=== PATIENT | female | born 1995 | race Caucasian/White ===

== ENCOUNTER 2022-07-29 19:09 | Emergency (ER) | payer OTHER, SELFPAY ==
[2022-07-29 19:21] VITALS: BP 150/82; PULSE 108; RESP 16; TEMP 37.5; O2SAT 97; BMI 51.6
[2022-07-29 19:41] VITALS: BP 145/80; PULSE 99; RESP 16; TEMP 37.5; O2SAT 97; BMI 51.6
[2022-07-29 20:10] LABS: UTC Strep Screen (Rapid) Negative (Negative)
--- NOTE | 2022-07-29 20:16 | EXP.UTC ---
Discharge Plan Disposition Patient Disposition: Home, Self-Care Condition: Good Prescriptions Prescriptions: New amoxicillin 875 mg tablet 875 mg PO BID 10 Days Qty: 20 0RF fluticasone propionate [Flonase Allergy Relief] 50 mcg/actuation spray,suspension 1 spray intranasal Q12H Qty: 16 0RF Rx Instructions: administer into each nostril Referrals Follow up/Referrals: Conor Santamaria [Primary Care Provider] - See instructions Clinical Impressions Clinical Impression: Otitis media in diseases classified elsewhere, left ear Instructions Patient Instructions: Middle Ear Infection Discharge ED Provider: Patsy Cox [facility] [place] General Stated complaint: MAHAJAN,earache,eyes hurt Mode of Arrival: Wheelchair Source of Information: Patient Limitations: No Limitations Time Seen by Provider: 07/29/22 20:16 Description of Symptoms (Recalled from Triage Doc. by RN): pt comes in with c/o headache, ear pain, eye pain, nausea. symptoms began 07/26. pt states symptoms got better and sunday. but symptoms got worse today HEENT Symptoms (Recalled from RN notes): Yes Resp Symptoms (Recalled from RN notes): Yes Skin Symptoms (Recalled from RN notes): No MS Symptoms (Recalled from RN notes): No Functional Status (Recalled from RN notes): n/a History of Present Illness Provider Complaint: Pt complains of a frontal headache, eye pain, bilateral ear pain, fever, and nausea. Pt states that she has taken Motrin for her symptoms. She states that her ears hurt even when she hiccups. Related Data Previous Rx's Medication Instructions Recorded amoxicillin 875 mg tablet 875 mg PO BID 10 days #20 tabs 07/29/22 fluticasone propionate 50 1 spray intranasal Q12H #16 grams 07/29/22 mcg/actuation nasal spray,suspension (Flonase Allergy Relief) Allergies Allergy/AdvReac Type Severity Reaction Status Date / Time No Known Allergies Allergy Verified 07/29/22 19:47 Worker's Comp Is this a Worker's Comp case?: No PFSH PFSH Social History Smoking Status: Never smoker alcohol intake: never current occupational status: unemployed Travel in the last 8 weeks: None ROS Obtained: Yes All systems reviewed & no additional complaints except as documented Constitutional Constitutional: Reports as per HPI, Reports fever(s), Reports headache(s) and Reports malaise Eyes Eyes: Reports sensitivity to light ENT Ears, Nose, Mouth, and Throat: Reports headache(s), Reports odynophagia and Reports sore throat Cardiovascular Cardiovascular: Reports system reviewed and no additional complaints, except as documented Respiratory Respiratory: Reports system reviewed and no additional complaints, except as documented Gastrointestinal Gastrointestingal: Reports as per HPI and odynophagia Genitourinary Female Genitourinary: Reports system reviewed and no additional complaints, except as documented Musculoskeletal Musculoskeletal: Reports system reviewed and no additional complaints, except as documented Integumentary/Breasts Skin/Breast: Reports system reviewed and no additional complaints, except as documented Neurologic Neurologic: Reports system reviewed and no additional complaints, except as documented and Reports headache(s) Endocrine Endocrine: Reports system reviewed and no additional complaints, except as documented Hematologic/Lymphatic Henatologic/Lymphatic: Reports system reviewed and no additional complaints, except as documented Physical Exam General General appearance: alert and in no apparent distress Head Head exam: atraumatic and normocephalic Eye Eye exam: Present normal appearance ENT ENT exam: Present mucous membranes moist and other Expanded ENT Exam External ear exam: Present normal external inspection TM/Canal exam: Left TM: erythema and Bilateral TM: bulging and effusion Mouth exam: Present normal external inspection Teeth exam: Present normal inspection Comment: posterior pharynx red Neck Nec
[2022-07-29 20:29] VITALS: BP 145/80; PULSE 99; RESP 16; TEMP 37.5
== END 2022-07-29 20:30 | disposition home or self-care (01) ==
PROVIDERS: Emergency Provider Nurse Practitioner Family; PCP Internal Medicine
DX: H66.92 Otitis media, unspecified, left ear (principal); H92.01 Otalgia, right ear; H57.10 Ocular pain, unspecified eye; R11.0 Nausea; R50.9 Fever, unspecified; R53.81 Other malaise; R51.9 Headache, unspecified; Z20.822 Contact with and (suspected) exposure to COVID-19; Z79.51 Long term (current) use of inhaled steroids; Z79.899 Other long term (current) drug therapy
CPT/HCPCS: 87880; 99213; C9803; G0463; U0003; U0005

== ENCOUNTER 2023-02-22 16:44 | Emergency (ER) | payer OTHER, SELFPAY ==
[2023-02-22 16:45] VITALS: BP 127/73; PULSE 82; RESP 20; TEMP 36.9; O2SAT 99; BMI 51.2
--- NOTE | 2023-02-22 16:58 | EXP.UTC ---
Discharge Plan Disposition Patient Disposition: Home, Self-Care Condition: Good Prescriptions Prescriptions: New ibuprofen [IBU] 800 mg tablet 800 mg PO Q8HP PRN (Reason: Moderate Pain) Qty: 30 0RF No Action metformin 500 mg tablet extended release 24 hr 2,000 mg PO DAILY Label Comments: TAKE 4 TABLETS BY MOUTH WITH EVENING MEAL FOR DIABETES Referrals Follow up/Referrals: Conor Santamaria [Primary Care Provider] - See instructions Randee Etienne DPM [Staff Physician] - See instructions Activity Restrictions/Add. Instructions Additional Instructions/Restrictions: Rest the extremity, Elevate the extremity as tolerated while you are resting. Use the walking boot for ambulation until you are told different by orthopedics. Take ibuprofen for pain. I sent in a prescription to your pharmacy. Follow up with Dr. Etienne (podiatry). I put in a referral but you need to call her office and schedule an appointment. Follow up with your regular doctor. GO TO THE ER FOR ANY WORSENING SYMPTOMS Clinical Impressions Clinical Impression: Crush injury of right foot Stand Alone Forms Stand Alone Forms: Work/School Release Instructions Patient Instructions: DI for Crush Injury, How to Use a Walking Boot Discharge ED Provider: Evelio Thrasher [facility] [place] General Stated complaint: WC4/06 RT foot injury Time Seen by Provider: 02/22/23 16:57 History of Present Illness Provider Complaint: 1 week ago, she dropped a heavy tire on her right foot at her work. Since then she has had right foot pain and swelling. She denies other injury. She states that walking on the foot and bearing weight on it makes her pain worse. Related Data Home Medications Medication Instructions Recorded Confirmed metformin 500 mg tablet,extended 2,000 mg PO DAILY Diabetes 02/22/23 02/22/23 release 24 hr Previous Rx's Medication Instructions Recorded ibuprofen 800 mg tablet (IBU) 800 mg PO Q8HP PRN Moderate Pain 02/22/23 #30 tabs Allergies Allergy/AdvReac Type Severity Reaction Status Date / Time No Known Allergies Allergy Verified 02/22/23 17:06 [facility] Disclaimer: The information contained in this section may have been updated after the patient was seen, as this information can be updated by other users. Social History Smoking Status: Never smoker alcohol intake: never current occupational status: unemployed Travel in the last 8 weeks: None ROS Obtained: Yes All systems reviewed & no additional complaints except as documented Constitutional Constitutional: Denies chills and Denies fever(s) Eyes Eyes: Denies eye discharge ENT Ears, Nose, Mouth, and Throat: Denies dizziness, Denies otalgia and Denies sore throat Cardiovascular Cardiovascular: Denies chest pain Respiratory Respiratory: Denies shortness of breath, Denies chest congestion, Denies cough, Denies stridor and Denies wheezing Gastrointestinal Gastrointestingal: Denies nausea or vomiting Musculoskeletal Musculoskeletal: Reports as per HPI Integumentary/Breasts Skin/Breast: Denies rash Neurologic Neurologic: Denies dizziness and Denies paresthesias Allergic/Immunologic Allergic/Immunologic: Denies wheezing Physical Exam General General appearance: alert and in no apparent distress Head Head exam: atraumatic, normocephalic and normal inspection Eye Eye exam: Present normal appearance, PERRL and EOMI ENT ENT exam: Present normal exam, normal oropharynx, mucous membranes moist, TM's normal bilaterally and normal external ear exam Neck Neck exam: Present normal inspection, full ROM and trachea midline; Absent meningismus or lymphadenopathy Chest Chest inspection: Present normal inspection and symmetric chest wall rise; Absent tenderness Respiratory Respiratory exam: Present normal lung sounds bilaterally; Absent respiratory distress Cardiovascular Cardiovascular exam: Present reg
--- NOTE | 2023-02-22 16:59 | XR_ITS ---
PROCEDURE INFORMATION: Exam: XR Right Foot Exam date and time: 02/22/2023 5:21 PM Age: 27 years old Clinical indication: Injury or trauma; Other: Dropped tire on foot; Additional info: Pain/bruising in top of right foot, dropped tire on foot last week TECHNIQUE: Imaging protocol: Radiologic exam of the right foot. Views: 3 or more views. COMPARISON: No relevant prior studies available. FINDINGS: Bones/joints: Intermediate sized enthesophytes involving the calcaneus. Soft tissues: Moderate soft tissue swelling of the forefoot. IMPRESSION: Moderate soft tissue swelling of the forefoot. No acute osseous abnormality.
--- NOTE | 2023-02-22 16:59 | XR_ITS ---
PROCEDURE INFORMATION: Exam: XR Right Ankle Exam date and time: 02/22/2023 5:23 PM Age: 27 years old Clinical indication: Injury or trauma; Other: Dropped tire on foot; Additional info: Pain/bruising in top of right foot, dropped tire on foot last week TECHNIQUE: Imaging protocol: Radiologic exam of the right ankle. Views: 3 or more views. COMPARISON: CR XR FOOT RT MIN 3V 02/22/2023 5:21 PM FINDINGS: Bones/joints: Smooth ovoid well corticated osseous bodies at the tip of the fibula measuring 12 mm in diameter and 5 mm in diameter favor accessory ossicles versus sequela of prior injury. Soft tissues: Moderate soft tissue swelling of the ankle. IMPRESSION: 1. Smooth ovoid well corticated osseous bodies at the tip of the fibula measuring 12 mm in diameter and 5 mm in diameter favor accessory ossicles versus sequela of prior injury. 2. Moderate soft tissue swelling of the ankle.
[2023-02-22 18:46] VITALS: BP 127/73; PULSE 82; RESP 20; TEMP 36.9; O2SAT 99
== END 2023-02-22 18:46 | disposition home or self-care (01) ==
PROVIDERS: Emergency Provider Nurse Practitioner Family; PCP Internal Medicine
DX: S97.81XA Crushing injury of right foot, initial encounter (principal); W20.8XXA Other cause of strike by thrown, projected or falling object, initial encounter; Y99.0 Civilian activity done for income or pay
CPT/HCPCS: 29515; 73610; 73630; 99212; 99214; G0463

== ENCOUNTER 2023-11-26 16:59 | Emergency (ER) | payer BC, SELFPAY ==
[2023-11-26 17:10] VITALS: BP 135/86; PULSE 82; RESP 22; TEMP 36.7; O2SAT 97; BMI 54.1
--- NOTE | 2023-11-26 17:20 | XR_ITS ---
PROCEDURE INFORMATION: Exam: XR Left Wrist Exam date and time: 11/26/2023 6:05 PM Age: 28 years old Clinical indication: Pain; Wrist; Left TECHNIQUE: Imaging protocol: Radiologic exam of the left wrist. Views: 3 or more views. COMPARISON: No relevant prior studies available. FINDINGS: Bones/joints: Normal. Soft tissues: Normal. IMPRESSION: No acute findings.
--- NOTE | 2023-11-26 17:39 | EXP.UTC ---
Discharge Plan Disposition Patient Disposition: Home, Self-Care Condition: Good Prescriptions Prescriptions: No Action metformin 500 mg tablet extended release 24 hr 2,000 mg PO DAILY Patient Comments: TAKE 4 TABLETS BY MOUTH WITH EVENING MEAL FOR DIABETES Referrals Follow up/Referrals: Conor Santamraia [Primary Care Provider] - See instructions Activity Restrictions/Add. Instructions Additional Instructions/Restrictions: *RICE, Rest the extremity, Ice 15-20 minutes 3-4 times daily, Compress- wear the kiko wrap as discussed as much as possible to help reduce swelling and pain, Elevate the extremity when at rest *Velcro Wrist splint is for support and help control swelling, use it except in the shower. Be sure that is not to tight but not to loose either *Elevate when resting? *Ibuprofen 600-800mg every 6-8 hours as needed for pain an inflammation. If need something more can take Tylenol in between doses of Ibuprofen to help Immediately follow up with your family doctor for new or worsening of symptoms, or no noticeable improvement over the next 3-5 days Clinical Impressions Clinical Impression: Left wrist sprain Qualifiers: Encounter type: initial encounter Qualified Code(s): S63.502A - Unspecified sprain of left wrist, initial encounter Stand Alone Forms Stand Alone Forms: Work/School Release Instructions Patient Instructions: DI for Wrist Sprain, Wrist Sprain, How To Perform RICE (Rest, Ice, Compress, Elevate) Discharge ED Provider: Neha Figueroa [facility] [place] General Stated complaint: left wrist pain Mode of Arrival: Ambulatory Source of Information: Patient Limitations: No Limitations Time Seen by Provider: 11/26/23 17:39 Description of Symptoms (Recalled from Triage Doc. by RN): PATIENT C/O LEFT WRIST PAIN THAT STARTED BEFORE [facility]. NO KNOWN INJURY HEENT Symptoms (Recalled from RN notes): No Resp Symptoms (Recalled from RN notes): No Skin Symptoms (Recalled from RN notes): No MS Symptoms (Recalled from RN notes): Yes Functional Status (Recalled from RN notes): WNL History of Present Illness Provider Complaint: Patient states that she has been having pain in her left wrist for a couple of weeks states that she thinks she may have hit it on the night stand but not sure States that her wrist has continued to hurt so she came in today to get it checked out Related Data Home Medications Medication Instructions Recorded Confirmed metformin 500 mg tablet,extended 2,000 mg PO DAILY Diabetes 02/22/23 11/26/23 release 24 hr Allergies Allergy/AdvReac Type Severity Reaction Status Date / Time No Known Allergies Allergy Verified 02/22/23 17:06 Worker's Comp Is this a Worker's Comp case?: No [facility] Dis[facility]: The information contained in this section may have been updated after the patient was seen, as this information can be updated by other users. Medical History (Updated 11/26/23 @ 18:41 by Neha Figueroa APRN) Diabetes mellitus, type 2 Hyperlipidemia Hypertension Urinary tract infection Surgical History (Updated 11/26/23 @ 17:20 by Cat German RN) History of cholecystectomy History of tonsillectomy Social History Smoking Status: Never smoker alcohol intake: never current occupational status: unemployed Travel in the last 8 weeks: None ROS Obtained: Yes All systems reviewed & no additional complaints except as documented and Yes Systems reviewed as appropriate & no additional complaints except as documented Constitutional Constitutional: Reports system reviewed and no additional complaints, except as documented and Reports as per HPI ENT Ears, Nose, Mouth, and Throat: Reports system reviewed and no additional complaints, except as documented and Reports as per HPI Cardiovascular Cardiovascular: Reports system reviewed and no additional complaints, except as documented and Reports as per HPI Respiratory Respiratory: Reports system reviewed and no additional complaints, except as documented and Reports as per HPI Gastrointestinal Gastrointestingal: Reports system reviewed and no additional complaints, except as documented and as per HPI Musculoskeletal Musculoskeletal: Reports system reviewed and no additional complaints, except as documented, Reports as per HPI and Reports other (Pain in left wrist for several weeks unsure if she hit it or not) Physical Exam General General appearance: alert and in no apparent distress ENT ENT exam: Present mucous membranes moist Respiratory Respiratory exam: Present normal lung sounds bilaterally; Absent respiratory distress or wheezes Cardiovascular Cardiovascular exam: Present regular rate, normal rhythm and normal heart sounds Expanded Upper Extremity Exam Left: Forearm/Wrist exam: Present tenderness; Absent swelling, ecchymosis or erythema Hand exam: Present normal inspection; Absent tenderness, swelling, deformity, dislocation or erythema Neurological Exam Neurological exam: Present alert, oriented X3 and normal gait Medical Decision Making Bra[place] Inquiry Pt receiving controlled substance: No Bra[place] was queried for this patient: No Vital Signs: 11/26/23 17:10 Temperature 98.0 F Temperature Source Oral Pulse Rate [Left Brachial] 82 Respiratory Rate 22 Blood Pressure [Left Arm] 135/86 Blood Pressure Mean [Left Arm] 102 Blood Pressure Source [Left Arm] Automatic Cuff Blood Pressure Position [Left Arm] Sitting 02 Sat by Pulse Oximetry 97 Oxygen Delivery Method Room Air Orders (Tests/Meds): ORDERS Category Date Time Status Wrist XR left minimum 3 views [XR wrist LT min 3V] Stat Exams 11/26/23 17:20 Ordered Radiology Data #1: Image(s): Wrist Image Reviewed: Yes I have reviewed radiologist's interpretation FINDINGS: Bones/joints: Normal. Soft tissues: Normal. Procedures Orthopedic Splinting/Casting Injury #1: Side: left Upper Extremity Immobilizer: wrist splint Post Cast/Splinting Neuro Status: intact and no change Post Cast/Splinting Vasc Status: intact and no change
[2023-11-26 17:43] LABS: UTC Pregnancy Test, Urine Negative (Negative)
[2023-11-26 18:39] VITALS: BP 135/86; PULSE 82; RESP 22; TEMP 36.7; O2SAT 97
== END 2023-11-26 18:48 | disposition home or self-care (01) ==
PROVIDERS: Emergency Provider Nurse Practitioner; PCP Internal Medicine
DX: S63.502A Unspecified sprain of left wrist, initial encounter (principal); E11.9 Type 2 diabetes mellitus without complications; E78.5 Hyperlipidemia, unspecified; I10 Essential (primary) hypertension; X58.XXXA Exposure to other specified factors, initial encounter
CPT/HCPCS: 73110; 81025; 99212; 99214; G0463